=== PATIENT | male | born 1945 | race Caucasian/White ===

== ENCOUNTER → 2023-01-11 | Outpatient (CLI) | payer MEDICARE ==
[2023-01-11 16:47] LABS: CREATININE 1.6 mg/dL (0.5-1.5); POTASSIUM 4.5 mmol/L (3.5-5.1)
== END | disposition home or self-care (01) ==
LOC: LAB 15:22
PROVIDERS: ATTEND Internal Medicine Cardiovascular Disease
DX: I10 Essential (primary) hypertension (principal)
CPT/HCPCS: 36415; 80048